=== PATIENT | female | born 1990 | race Caucasian/White ===

== ENCOUNTER 2017-05-24 05:41 | Day surgery (SDC) | payer OTHER, BC ==
[~2017-05-24] VITALS: Ht 162.6 cm; Wt 46.2 kg
[~2017-05-24 05:41] MED LIST: Colace PO; ENDOCET 5-3251 EACH PO; Feosol PO; IRON325 M1 PO; MOTRIN800 MG PO; Motrin PO; Natalcare Rx,Pramile PO; Percocet 5/325,Endoc PO
[2017-05-24 05:59] VITALS: BP 100/71
[2017-05-24] MEDS ORDERED: ZOFRAN4 MG PO (07:17)
[2017-05-24] MEDS ORDERED: ENDOCET 5-3251 EACH PO (07:19)
[2017-05-24] MEDS ORDERED: IBUPROFEN800 MG PO (07:19)
[2017-05-24 11:11] VITALS: BP 102/56
[2017-05-24 12:19] VITALS: BP 98/55
[2017-05-24 13:48] VITALS: BP 96/55
== END 2017-05-24 13:49 | disposition home or self-care (01) ==
LOC: SDC 05:41
DX: N92.0 Excessive and frequent menstruation with regular cycle (principal); N85.4 Malposition of uterus; N80.0 Endometriosis of uterus; R10.2 Pelvic and perineal pain; N94.6 Dysmenorrhea, unspecified; N94.10 Unspecified dyspareunia; N32.89 Other specified disorders of bladder; N13.5 Crossing vessel and stricture of ureter without hydronephrosis
CPT/HCPCS: 88307; J0131; J0330; J0690; J1100; J1170; J1885; J2250; J2405; J2710; J2765; J3010; J7643; S0020